=== PATIENT | male | born 1985 | race Caucasian/White ===

== ENCOUNTER 2022-02-08 11:14 | Emergency (ER) | payer OTHER ==
[~2022-02-08] VITALS: Ht 195.6 cm; Wt 113.4 kg
[~2022-02-08 11:14] MED LIST: LIDODERM700 MG TOP; VALIUM5 MG PO
[2022-02-08] MEDS ORDERED: VENTOLIN HFA18 GM INH ×2 (11:33→12:46)
[2022-02-08] MEDS ORDERED: ALBUTEROL2.5 MG/3 M INH (12:46)
[2022-02-08] MEDS ORDERED: PREDNISONE20 MG PO (12:46)
--- NOTE | 2022-02-11 14:54 | EKG ---
[facility] [address] [place] [address] Signed Normal sinus rhythm with sinus arrhythmia Normal ECG No previous ECGs available Confirmed by ANNIKA WEST MD ([id number]) on 02/11/2022 2:54:33 PM Electronically Signed By: ANNIKA WEST MD 02/11/22 1454 PATIENT NAME: ALETHEA DINERO Electrocardiogram DATE OF : 81 PHYSICIAN: ANNIKA WEST MD REPORT #: [id number] REPORT IS CONFIDENTIAL AND NOT TO BE RELEASED WITHOUT AUTHORIZATION
== END 2022-02-08 13:17 | disposition home or self-care (01) ==
LOC: ED 11:14
DX: J45.901 Unspecified asthma with (acute) exacerbation (principal)
CPT/HCPCS: 93005; 93010; 94640; 94664; 99284-25; J7512

== ENCOUNTER 2022-02-10 01:35 | Emergency (ER) | payer OTHER ==
[~2022-02-10] VITALS: Ht 195.6 cm; Wt 111.0 kg
[~2022-02-10 01:35] MED LIST changes: +ALBUTEROL2.5 MG/3 M INH; +PREDNISONE20 MG PO; +VENTOLIN HFA18 GM INH
--- OUTSIDE RECORDS SUMMARY | 2022-02-10 01:44 | XMS ---
PreManage Notification: ALETHEA DINERO Security [employer] Events No recent Security Events currently on file CRITERIA MET - [facility] - 2 Visits in 30 Days [facility] PROVIDERS [facility], Clinic/Center: [facility] PHONE: Unknown [facility] has no Care Guidelines for this patient. [place] VISIT COUNT (12 MO.) 2 [facility] TOTAL 2 NOTE: Visits indicate total known visits. ED/UCC VISIT TRACKING (12 MO.) 02/10/2022 01:36 [facility] [place] TYPE: Emergency COMPLAINT: - SOB 02/08/2022 11:15 [facility] [place] TYPE: Emergency COMPLAINT: - DIFFICULLTY BREATHING,CHEST TIGHTNESS INPATIENT VISIT TRACKING (12 MO.) No inpatient visits to display in this time frame [email or web address]
== END 2022-02-10 03:58 | disposition home or self-care (01) ==
LOC: ED 01:35
DX: J45.901 Unspecified asthma with (acute) exacerbation (principal); Z79.52 Long term (current) use of systemic steroids
CPT/HCPCS: 71045; 96374; 99284-25; J2930; J7030